=== PATIENT | male | born 1965 | race Caucasian/White ===

== ENCOUNTER 2018-11-28 18:26 | Emergency (ER) | payer BC ==
[2018-11-28] MEDS ORDERED: SODIUM CHLORIDE 0.9% 1,000 ML IV ONE ×2 (19:23→23:28)
[2018-11-28] MEDS ORDERED: ONDANSETRON 4 MG/2 ML VIAL IVP STA (19:23)
[2018-11-28] MEDS ORDERED: HYDROmorphone 1 MG/ML CARPUJECT IVP STA (19:23)
--- NOTE | 2018-11-28 19:23 | ED Physician Documentation ---
PD HPI ABD PAIN - Stated complaint Stated Complaint: VOMITING,ABD PX,SWEATING - Chief complaint Chief Complaint: Abd Pain - History obtained from History obtained from: Patient, Other (Primary care provider) - History of Present Illness Timing - onset: Today Timing - duration: Hours Timing - details: Abrupt onset (At 10 AM) Pain level max: 8 Pain level now: 5 Quality: Cramping, Other (Spasms) Location: All over / everywhere Radiation: No: Chest Improved by: Vomiting (Partial resolution) Associated symptoms: Nausea, Vomiting, Diarrhea. No: Fever, Hematemesis, Constipation, Hematochezia, Dysuria, Hematuria Similar symptoms before: Has not had sx before Recently seen: Clinic (Sent here by his primary care provider for evaluation) - Additional information Additional information: This is a 53-year-old man who presents with complaints that 10 AM he developed an upset stomach and within an hour he was having crampy abdominal spasming and vomiting with watery liquid diarrhea without blood in it. He has not noted anything that makes this better or worse. Is currently 4-5 out of 10. He is never had anything like this in the past. Denies fever but says whenever the pain is building up before he vomits he will get really sweaty and he feels a little bit short of breath. Denies prior abdominal surgeries but was diagnosed with Crohn's disease and Was initially on Pentasa and then Humira. He quit taking the medications probably 3 or 4 years ago and has not had a flare since then. He is just been controlling with diet. Denies any chest pain or palpitations. Review of Systems Unable to obtain: Other (Of acute pain) Constitutional: reports: Sweats. denies: Fever Cardiac: denies: Chest pain / pressure, Palpitations Respiratory: reports: Dyspnea. denies: Cough GI: reports: Abdominal Pain, Nausea, Vomiting, Diarrhea. denies: Hematemesis, Bloody / black stool : denies: Dysuria Musculoskeletal: denies: Back pain PD PAST MEDICAL HISTORY - Past Medical History GI: Crohn's disease - Allergies Allergies/Adverse Reactions: Allergies Allergy/AdvReac Type Severity Reaction Status Date / Time No Known Drug Allergies Allergy Verified 11/28/18 19:26 - Social History Does the pt smoke?: No Smoking Status: Never smoker Does the pt drink ETOH?: Yes ETOH Use: Beer PD ED PE NORMAL - Vitals Vital signs reviewed: Yes - General General: Alert and oriented X 3, No acute distress, Well developed/nourished - HEENT HEENT: Atraumatic, Moist mucous membranes, Pharynx benign - Neck Neck: No adenopathy, No JVD - Cardiac Cardiac: RRR, No murmur - Respiratory Respiratory: No respiratory distress, Clear bilaterally - Abdomen Abdomen: Other (Hypoactive bowel sounds. He has diffuse tenderness with guarding throughout the abdomen.) - Back Back: No CVA TTP - Derm Derm: Normal color, Warm and dry, No rash - Neuro Neuro: Alert and oriented X 3, Normal speech - Psych Psych: Normal mood, Normal affect Results - Vitals Vitals: Vital Signs - 24 hr 11/28/18 11/28/18 11/28/18 18:33 19:42 20:15 Temperature 36.8 C 36.5 C Heart Rate 84 62 60 Respiratory 16 16 16 Rate Blood Pressure 137/56 H 117/76 124/62 O2 Saturation 97 98 97 11/28/18 11/28/18 11/28/18 21:28 22:37 23:00 Temperature 37.2 C 37.2 C Heart Rate 71 70 45 L Respiratory 16 16 17 Rate Blood Pressure 114/61 122/65 110/63 O2 Saturation 96 99 97 Oxygen O2 Source Room air - Labs Labs: Laboratory Tests 11/28/18 11/28/18 11/28/18 18:50 18:50 18:50 WBC 14.5 H RBC 5.84 Hgb 16.6 Hct 50.1 MCV 85.7 MCH 28.5 MCHC 33.2 RDW 13.4 Plt Count 316 MPV 8.2 Neut # (Auto) 13.3 H Lymph # (Auto) 0.6 L [place] # (Auto) 0.6 Eos # (Auto) 0.0 Baso # (Auto) 0.0 Absolute Nucleated RBC 0.02 Nucleated RBC % 0.1 Sodium 135 Potassium 4.0 Chloride 98 L Carbon Dioxide 23 Anion Gap 14.0 H BUN 19 Creatinine 1.3 H Estimated GFR (MDRD) 57 L Glucose 139 H Lactic Acid 2.4 H Calcium 10.6 H Total Bilirubin 1.1 H AST 25 ALT 20 Alkaline Phosphatase 82 Total Protein 8.8 H Albumin 5.2 Globulin 3.6 Albumin/Globulin Ratio 1.4 Lipase 29 Urine Color Urine Clarity Urine pH Ur Specific [place] Urine Protein Urine Glucose (UA) Urine Ketones Urine Occult Blood Urine Nitrite Urine Bilirubin Urine Urobilinogen Ur Leukocyte Esterase Urine RBC Urine WBC Ur Squamous Epith Cells Urine Bacteria Urine Mucus Ur Microscopic Review Urine Culture Comments 11/28/18 20:15 WBC RBC Hgb Hct MCV MCH MCHC RDW Plt Count MPV Neut # (Auto) Lymph # (Auto) [place] # (Auto) Eos # (Auto) Baso # (Auto) Absolute Nucleated RBC Nucleated RBC % Sodium Potassium Chloride Carbon Dioxide Anion Gap BUN Creatinine Estimated GFR (MDRD) Glucose Lactic Acid Calcium Total Bilirubin AST ALT Alkaline Phosphatase Total Protein Albumin Globulin Albumin/Globulin Ratio Lipase Urine Color DARK YELLOW Urine Clarity SL. 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 White blood cell count was 14.5 and he appeared dehydrated on his labs. Lactate was up slightly at 2.4. Had an IV started and was given a liter of fluids as well as 1 of Dilaudid and [address] scan was ordered and this did show an area in the distal ileum that looks like stricture formation with beginning obstructive process. After the pain medications the patient stated that he felt much better. His abdomen was soft only had guarding with really deep palpation. He had no emesis here or stool. I initially discussed case with our surgeon who recommended referral to a facility where GI was available. Patient does not have a local GI specialist and referral was made to [facility] I spoke with Dr. Bhatti the medical office technician who accepted the patient and also Dr. Rodriguez the hospitalist at [place]. Patient will be transferred by ALS on IV fluids and has remained n.p.o. Departure - Departure Disposition: 02 Transfer Acute Care Hosp Clinical Impression: Crohn's colitis Qualifiers: Digestive disease complication type: other complication Qualified Code(s): K50.118 - Crohn's disease of large intestine with other complication
[2018-11-28 19:30] LABS: BASOPHILS % (AUTO) 0.3 %; HGB - HEMOGLOBIN 16.6 g/dL (14.0-18.0); LYMPHOCYTES # (AUTO) 0.6 10^3/uL (1.5-3.5); LYMPHOCYTES % (AUTO) 4.3 %; MEAN CORPUSCULAR HEMOGLOBIN 28.5 pg (27.0-31.0); MEAN CORPUSCULAR HGB CONC 33.2 g/dL (32.0-36.0); MEAN CORPUSCULAR VOLUME 85.7 fL (80.0-94.0); MEAN PLATELET VOLUME 8.2 fL (7.4-11.4); MONOCYTES # (AUTO) 0.6 10^3/uL (0.0-1.0); NEUTROPHILS # (AUTO) 13.3 10^3/uL (1.5-6.6); NEUTROPHILS % (AUTO) 91.4 %; PLT - PLATELET COUNT 316 10^3/uL (130-450); RED BLOOD COUNT 5.84 10^6/uL (4.70-6.10); RED CELL DISTRIBUTION WIDTH 13.4 % (12.0-15.0); WHITE BLOOD COUNT 14.5 x10^3/uL (4.8-10.8)
[2018-11-28] MEDS ORDERED: IOVERSOL 320 100 ML VIAL IVP ONE ×2 (19:35→20:23)
[2018-11-28 20:13] LABS: ALBUMIN 5.2 g/dL (3.2-5.5); ALBUMIN/GLOBULIN RATIO 1.4 (1.0-2.2); BILIRUBIN,TOTAL 1.1 mg/dL (0.2-1.0); CALCIUM 10.6 mg/dL (8.5-10.3); CREATININE 1.3 mg/dL (0.6-1.2); TOTAL PROTEIN 8.8 g/dL (6.7-8.2)
[2018-11-28 20:19] LABS: GLUCOSE, URINE (UA) NEGATIVE (NEGATIVE); KETONES,URINE (UA) 15 mg/dL (NEGATIVE); LEUKOCYTE ESTERASE, URINE TRACE (NEGATIVE); NITRITE,URINE NEGATIVE (NEGATIVE); OCCULT BLOOD,URINE NEGATIVE (NEGATIVE); PH,URINE 7.5 PH (5.0-7.5); PROTEIN,URINE 100 mg/dL (NEGATIVE); UROBILINOGEN,URINE 1 (NORMAL) E.U./dL (NORMAL)
[2018-11-28 20:26] LABS: BILIRUBIN,URINE SMALL (NEGATIVE); CLARITY,URINE SL. CLOUDY (CLEAR); ICTOTEST,URINE POSITIVE
[2018-11-28 20:28] LABS: BACTERIA,URINE Rare /HPF (None Seen); MUCUS,URINE Few Strands; RBC,URINE 0-5 /HPF (0-5); SQUAMOUS EPITHELIAL CELL,UR NONE SEEN (<= Few)
--- NOTE | 2018-11-28 20:41 | CT Report ---
Reason: abdominal pain Procedure Date: 11/28/2018 Accession Number: [id number] / [id number] Procedure: CT - Abdomen/Pelvis W CPT Code: FULL RESULT: EXAM: CT ABDOMEN AND PELVIS EXAM DATE: 11/28/2018 08:25 PM. CLINICAL HISTORY: Abdominal pain. COMPARISONS: None. TECHNIQUE: Routine helical CT imaging was performed through the abdomen and pelvis. IV contrast: 100 cc Optiray 320. Enteric contrast: No. Reconstructions: Coronal and sagittal. In accordance with CT protocol optimization, one or more of the following dose reduction techniques were utilized for this exam: automated exposure control, adjustment of mA and/or KV based on patient size, or use of iterative reconstructive technique. FINDINGS: ABDOMEN: Lung Bases: Incompletely included lower lungs are grossly clear. Heart size is within normal limits. No basilar effusions. Liver: Unremarkable. Spleen: Unremarkable. Pancreas: Unremarkable. Gallbladder/Bile Ducts: Gallbladder is unremarkable. Biliary tree is normal caliber. Adrenal Glands: Unremarkable. Kidneys: Right kidney: Punctate nonobstructing inferior calculus. No hydronephrosis. Left kidney: No calculi or hydronephrosis. Peritoneum/Mesentery/Bowel: No free fluid, free air, or collection. Small hiatal hernia is present. Dilated fluid-filled mid to distal small bowel. There is narrowing of the distal terminal ileum with thickening and mucosal hyperenhancement. A proximally 10 cm upstream from this there is an additional area of narrowing with wall thickening and mucosal hyperenhancement. Appendix not definitively identified. No evidence for appendicitis. Lymph nodes: No periportal or retroperitoneal lymphadenopathy by size criteria. 1 cm right mid mesenteric node (3/53). Vasculature: Abdominal aorta is nonaneurysmal. Portal vein is patent. Hepatic veins are patent. PELVIS: Bladder is decompressed. Prostate is present. No pelvic lymphadenopathy. Bones: No suspicious osseous lesions. Severe degenerative disk disease at L5-S1. IMPRESSION: Findings concerning for developing small bowel obstruction, with transition point at the distal terminal ileum, which is narrowed with mucosal hyperenhancement and wall thickening. This is suspicious for stricture formation and inflammatory bowel disease. Second area suspicious for stricture approximately 10 cm upstream from this. No abscess. No evidence for fistula formation. RADIA
[2018-11-29 01:07] VITALS: BP 109/61
== END 2018-11-29 02:07 | disposition short-term general hospital (02) ==
LOC: ED 18:26
DX: K50.118 Crohn's disease of large intestine with other complication (principal); E86.0 Dehydration
CPT/HCPCS: 36415; 74177; 80053; 81001; 83605; 83690; 85025; 87086; 96361; 96374; 99285; J1170; Q9967; 81003

== ENCOUNTER 2022-08-14 10:54 | Emergency (ER) | payer BC ==
[2022-08-14 11:35] LABS: RAPID STREP SCREEN Negative (Negative)
--- NOTE | 2022-08-14 13:26 | XRAY Report ---
PROCEDURE: Chest 1 View X-Ray INDICATIONS: chest pain TECHNIQUE: One view of the chest was acquired. COMPARISON: None. FINDINGS: Surgical changes and devices: None. Lungs and pleura: No pleural effusions or pneumothorax. Lungs are clear. Mediastinum: Mediastinal contours appear normal. Heart size is normal. Bones and chest wall: No suspicious bony lesions. Overlying soft tissues appear unremarkable. IMPRESSION: No acute pulmonary process. Reviewed by: Dinora Middleton MD on 08/14/2022 1:25 PM [facility] Approved by: Dinora Middleton MD on 08/14/2022 1:25 PM [facility] Station ID: [id number]
--- NOTE | 2022-08-14 14:53 | ED Physician Documentation ---
PD HPI URI - Stated complaint Stated Complaint: COUGH/C+ - Chief complaint Chief Complaint: Resp - History obtained from History obtained from: Patient - History of Present Illness Timing - onset: How many days ago (4) Timing duration: Days (4) Timing details: Abrupt onset, Still present Associated symptoms: Fever, Chills, Nasal congestion, Sore throat (throat pain with swallowing/eating is his major complaint), Dry cough. No: NVD Contributing factors: Sick contact (he flew to [place] last week and returned on Saturday. started illness day prior to returning.), Other (home covid test positive 3 days ago.) Improves by: No: Medication Similar symptoms before: Has not had sx before Recently seen: Not recently seen Review of Systems Constitutional: reports: Fever, Chills Nose: reports: Rhinorrhea / runny nose Throat: reports: Sore throat Respiratory: reports: Cough GI: reports: Nausea. denies: Vomiting, Diarrhea Skin: denies: Rash Musculoskeletal: denies: Neck pain Neurologic: denies: Altered mental status, Headache PD PAST MEDICAL HISTORY - Past Medical History Cardiovascular: Hypertension Respiratory: None Neuro: None Endocrine/Autoimmune: None GI: Crohn's disease - Present Medications Home Medications: Ambulatory Orders Medication Instructions Recorded Confirmed HYDROcodone/ACET 7.5/325 CRISTINO 10 ml PO Q6HR PRN #120 ml 08/14/22 [Lortab 7.5/325 Cristino] dexAMETHasone [Decadron] 4 mg PO DAILY #5 tablet 08/14/22 - Allergies Allergies/Adverse Reactions: Allergies Allergy/AdvReac Type Severity Reaction Status Date / Time monosodium glutamate Allergy Unknown Verified 08/14/22 11:17 flour Allergy Unknown Uncoded 08/14/22 11:17 - Social History Does the pt smoke?: No Smoking Status: Never smoker Does the pt drink ETOH?: Yes PD ED PE NORMAL - Vitals Vital signs reviewed: Yes - General General: Alert and oriented X 3, No acute distress (normal voice and interactive. appears to wince with swallowing. ), Well developed/nourished - HEENT HEENT: Ears normal, Moist mucous membranes, Pharynx benign - Neck Neck: Supple, no meningeal sign, Other (anterior adenopathy noted.) - Cardiac Cardiac: RRR, No murmur - Respiratory Respiratory: Clear bilaterally - Abdomen Abdomen: Soft, Non tender - Derm Derm: Normal color, Warm and dry, No rash Results - Vitals Vitals: Vital Signs - 24 hr 08/14/22 08/14/22 11:11 15:48 Temperature 37.9 C Heart Rate 83 82 Respiratory 16 16 Rate Blood Pressure 120/54 L 103/52 L O2 Saturation 95 98 Oxygen O2 Source Room air - Labs Labs: Laboratory Tests 08/14/22 11:18 Group A Strep Rapid Negative PD Medical Decision Making - ED course Complexity details: reviewed results, considered differential (URI with positive home covid test and main symptoms bothering him is very sore throat, limiting his ability to eat and drink. Can test rapid strep for coinfection. otherwise symptoms meds with pain med, benadryl, Lido. and to try to decrease inflammation of it with steroid, less viral with paxlovid.), d/w patient Drug Therapy Requiring Monitoring for Toxicity: paxlovid - discussed main side effects with pateint and to d/c use if feeling worse with meds. Departure - Departure Disposition: 01 Home, Self Care Clinical Impression: COVID-19, Sore throat, Odynophagia Condition: Stable Record reviewed to determine appropriate education?: Yes Prescriptions: HYDROcodone/ACET 7.5/325 CRISTINO [Lortab 7.5/325 Cristino] 10 ml PO Q6HR PRN #120 ml PRN Reason: Pain dexAMETHasone [Decadron] 4 mg PO DAILY #5 tablet Comments: We can try to improve the condition by decreasing the viral symptoms and inflammation resulting. Take the pack Slo-Bid antiviral medications as directed twice daily for 5 days. Also Decadron steroid anti-inflammatory daily for a few more days. To that add Tylenol every 4-6 hours if needed for pains. You could add to that hydrocodone/acetaminophen if needed for worse pain. I can prescribe it as a liquid to make it easier for swallowing. I sent your prescriptions to your preferred pharmacy. I would anticipate improvement in your throat pain and symptoms over the next day or 2. Try to stay well-hydrated. I am prescribing a short course of narcotic pain medication for you. These are potentially dangerous and addictive medications that should be used carefully. These medications may constipate you. Take an [id number] stool softener such as docusate twice daily with plenty of water while taking these medications. If you go 24 hours without a bowel movement, take [id number]-lvh-[id number] MiraLAX, per package instructions. Do not drink or drive while taking these medications. If you received narcotic or sedating medications while in the emergency department do not drive for 24 hours. Store this medication in a safe, secure place and out of reach of children. It is a violation of federal law to give or sell this medication to another person or to use in a manner other than prescribed. The ED will not refill narcotic prescriptions, including prescriptions lost or stolen. You can dispose of unwanted medications at the [facility]'s office or at several pharmacies such as [facility]. Your rapid strep test is negative. We will do a culture off of that and call you if there is any signs of bacterial growth in the next couple of days. Discharge Date/Time: 08/14/22 16:14
[2022-08-14] MEDS ORDERED: NIRMATRELVIR/RITONAVIR PREPACK PO STA (15:32)
[2022-08-14] MEDS ORDERED: HYDROcodone/ACETAM 7.5 MG/325 MG 15 ML UDC PO STA (15:32)
[2022-08-14] MEDS ORDERED: DEXAMETHASONE 10 MG/ML VIAL PO STA (15:32)
[2022-08-14] MEDS ORDERED: diphenhydrAMINE ELIXIR 25 MG/10 ML UDC PO STA (15:32)
[2022-08-14] MEDS ORDERED: CHERRY SYRUP 10 ML UDC PO ONE (15:32)
[2022-08-14 15:49] VITALS: BP 103/52
== END 2022-08-14 16:14 | disposition home or self-care (01) ==
LOC: ED 10:54
DX: U07.1 COVID-19 (principal); J02.9 Acute pharyngitis, unspecified; R13.10 Dysphagia, unspecified; I10 Essential (primary) hypertension
CPT/HCPCS: 71045; 87070; 87430; 99283; 99284; A9270; J3490

== ENCOUNTER 2023-02-09 20:42 | Emergency (ER) | payer BC ==
[2023-02-09] MEDS ORDERED: BUFFERED LIDOCAINE 10 ML SYRINGE SUBQ STA (21:00)
[2023-02-09] MEDS ORDERED: TETANUS/DIPHTHERIA/PERTUSSIS 0.5 ML SYRINGE IM ONE (21:00)
--- NOTE | 2023-02-09 21:19 | ED Physician Documentation ---
PD HPI LOWER EXT INJURY - Stated complaint Stated Complaint: FINGER LAC - Chief complaint Chief Complaint: Laceration - History obtained from History obtained from: Patient (Right-handed gentleman cut his left middle finger on an angle lens shaper grinder at home just prior to arrival. He is not sure when his last tetanus shot was.) PD PAST MEDICAL HISTORY - Past Medical History Cardiovascular: Hypertension Respiratory: None Neuro: None Endocrine/Autoimmune: None GI: Crohn's disease - Present Medications Home Medications: Ambulatory Orders Medication Instructions Recorded Confirmed HYDROcodone/ACET 7.5/325 CRISTINO 10 ml PO Q6HR PRN #120 ml 08/14/22 [Lortab 7.5/325 Cristino] dexAMETHasone [Decadron] 4 mg PO DAILY #5 tablet 08/14/22 - Allergies Allergies/Adverse Reactions: Allergies Allergy/AdvReac Type Severity Reaction Status Date / Time monosodium glutamate Allergy Unknown Verified 02/09/23 20:45 flour Allergy Unknown Uncoded 02/09/23 20:45 - Social History Does the pt smoke?: No Smoking Status: Never smoker Does the pt drink ETOH?: Yes PD ED PE NORMAL - Vitals Vital signs reviewed: Yes - General General: Alert and oriented X 3, No acute distress - Extremities Extremities: Other (1 cm left actively bleeding laceration on the pulp of the left middle finger without distal neurovascular compromise.) - Neuro Neuro: Alert and oriented X 3, Normal speech Results - Vitals Vitals: Vital Signs - 24 hr 02/09/23 20:45 Temperature 36.5 C Heart Rate 68 Respiratory 16 Rate Blood Pressure 132/69 H O2 Saturation 97 Oxygen O2 Source Room air Procedures - Laceration (location) L 3RD FINGER Length in cm: 1 Wound type: Linear, Into subcut fat Neurovascular status: Sensory intact, Motor intact Tendon involvement: Tendon intact Anesthesia: Lidocaine 1%, With bicarb Wound preparation: Irrigated copiously NS Skin layer closure: Nylon, Interrupted, Size #-0 - enter number (5-0), Sutures - enter # (3) Other: Patient tolerated well, No complications, Neurovascular intact, Dressing applied, Tetanus booster given Departure - Departure Disposition: 01 Home, Self Care Clinical Impression: Laceration of left middle finger Qualifiers: Encounter type: initial encounter Damage to nail status: without damage Foreign body presence: without foreign body Qualified Code(s): S61.213A - Laceration without foreign body of left middle finger without damage to nail, initial encounter Condition: Good Record reviewed to determine appropriate education?: Yes Instructions: ED Laceration Hand Comments: Note for your records that she received a Tdap shot today. Come back for any signs of infection which would include: Redness, swelling, drainage, increased pain, or fevers. You can wash it soap and water. Keep it covered and moist with bacitracin ointment which is available over the counter; avoid neosporin. Follow-up with your physician in about 14 days for suture removal.
[2023-02-09 21:45] VITALS: BP 130/65; O2SAT 99
== END 2023-02-09 21:39 | disposition home or self-care (01) ==
LOC: ED 20:42
DX: S61.213A Laceration without foreign body of left middle finger without damage to nail, initial encounter (principal); W29.8XXA Contact with other powered hand tools and household machinery, initial encounter; Y92.009 Unspecified place in unspecified non-institutional (private) residence as the place of occurrence of the external cause; I10 Essential (primary) hypertension; Z23 Encounter for immunization; Z71.85 Encounter for immunization safety counseling
CPT/HCPCS: 12001; 90471; 99283

== ENCOUNTER 2023-11-26 09:45 | Outpatient (CLI) | payer BC, OTHER ==
--- NOTE | 2023-11-26 12:07 | XRAY Report ---
PROCEDURE: Chest 2V INDICATIONS: HEMOPTYSIS TECHNIQUE: 2 views of the chest were acquired. COMPARISON: 08/14/2022. FINDINGS: Surgical changes and devices: None. Lungs and pleura: No pleural effusions or pneumothorax. Lungs are clear. Biapical scarring. Mediastinum: Mediastinal contours appear normal. Heart size is normal. Bones and chest wall: No suspicious bony lesions. Overlying soft tissues appear unremarkable. Mil d wedging of the midthoracic vertebrae. IMPRESSION: No acute cardiopulmonary process. Reviewed by: Vlad Acuna MD on 11/26/2023 12:06 PM PDT Approved by: Vlad Acuna MD on 11/26/2023 12:06 PM PDT Station ID: [id number]
== END 2023-11-26 09:46 | disposition home or self-care (01) ==
LOC: DI.N 09:45
PROVIDERS: ATTEND Nurse Practitioner
DX: R04.2 Hemoptysis (principal)

== ENCOUNTER 2023-12-14 08:56 | Outpatient (CLI) | payer OTHER ==
--- NOTE | 2023-12-16 08:35 | MRI Report ---
PROCEDURE: Knee LT WO INDICATIONS: LEFT KNEE PAIN TECHNIQUE: Noncontrast sagittal PD fast spin echo and T2 fast spin echo with fat saturation, sagittal 3-D gradie nt sequence with fat saturation; coronal T1 spin echo and PD fast spin echo with fat saturation, and axial PD fast spin echo with fat saturation through the knee. COMPARISON: None. FINDINGS: Image quality: Excellent. Menisci: Complex oblique tear involving posterior horn of medial meniscus is seen extending to both s uperior and inferior articulating surfaces. The lateral meniscus is intact.. The meniscal root ligam ents appear intact. Cruciate ligaments: The anterior and posterior cruciate ligaments appear intact. Medial structures: The medial collateral ligament appears thickened with mild surrounding edema. Vis ualized portions of the pes anserinus tendons appear normal. No abnormal bursal fluid. Lateral structures: The lateral collateral ligament, long and short heads of the biceps femoris tend on appear intact. The popliteus tendon appears normal. Iliotibial band appears normal. Anterior structures: Distal quadriceps tendinosis at its superior patella insertion is seen. The zuniga lla tendon is intact. Patellar alignment is normal. No femoral trochlear dysplasia or ventral trochl ear prominence. No edema in the infrapatellar fat pad. Bones and cartilage: No bone marrow contusions or fractures. Mild to moderate tricompartmental osteo arthritis and chondromalacia is seen more notably in medial femoral tibial compartment. Joint space: There is small knee joint fluid. No Lincoln's cyst. Normal appearing synovial plicae ar e incidentally noted. IMPRESSION: 1. Complex oblique tear involving posterior horn of medial meniscus extending to both superior and in ferior articulating surfaces. The lateral meniscus is intact. 2. The cruciate ligaments are intact. 3. Mild MCL sprain. 4. Distal quadriceps tendinosis. 5. Mild to moderate tricompartmental osteoarthritis and chondromalacia more notably in medial femoral tibial compartment. No fracture or dislocation. Small joint effusion, no loose bodies. Reviewed by: Derek Victoria MD on 12/16/2023 8:33 AM PDT Approved by: Derek Victoria MD on 12/16/2023 8:33 AM PDT Station ID: [id number]
== END 2023-12-14 08:57 | disposition home or self-care (01) ==
LOC: DI 08:56
PROVIDERS: ATTEND Nurse Practitioner Family
DX: S83.232A Complex tear of medial meniscus, current injury, left knee, initial encounter (principal); S83.412A Sprain of medial collateral ligament of left knee, initial encounter

== ENCOUNTER 2024-03-10 08:00 | Outpatient (CLI) | payer OTHER ==
--- NOTE | 2024-03-10 17:09 | XRAY Report ---
PROCEDURE: Knee 4+V LT INDICATIONS: KNEE PAIN, LEFT TECHNIQUE: 4 views of the knee(s) were acquired. COMPARISON: 12/14/2023 MRI of left knee. FINDINGS: Bones: No fractures or dislocations. Mild to moderate tricompartmental osteoarthritis is seen more n otably in medial femoral tibial compartment. Expansile mixed lytic and sclerotic lesion involving pro ximal left fibular shaft. Mixed lytic and sclerotic lesion is also noted involving right distal femor al shaft. Soft tissues: No knee joint effusion. No suspicious soft tissue calcifications or masses. IMPRESSION: 1. No acute left knee fracture or dislocation. Mild to moderate tricompartmental osteoarthritis most notably in medial femoral tibial compartment. 2. Incidentally noted of a expansile, mixed lytic and sclerotic lesion involving proximal fibular sha ft which may represent enchondroma not included on previous MR exam. Radiographic follow-up is recomm ended. 3. Incidentally noted of benign-appearing lesion within right distal femoral shaft and may represent benign enchondroma. Radiographic follow-up is also recommended. Reviewed by: Derek Victoria MD on 03/10/2024 5:07 PM PDT Approved by: Derek Victoria MD on 03/10/2024 5:07 PM PDT Station ID: [id number]
== END 2024-03-10 23:59 | disposition home or self-care (01) ==
LOC: DI.WOS 08:00
PROVIDERS: ATTEND Physician Assistant Surgical
DX: M17.12 Unilateral primary osteoarthritis, left knee (principal)